=== PATIENT | female | born 1945 | race Caucasian/White ===

== ENCOUNTER 2020-11-26 13:27 | Emergency (ER) | payer MEDICARE, OTHER, SELFPAY ==
[2020-11-26 13:38] VITALS: BP 141/75; PULSE 75; RESP 16; TEMP 37.1; O2SAT 98
--- NOTE | 2020-11-26 14:07 | ED.FEMALEGU ---
HPI - Female Genitourinary General Chief complaint: Urogenital-Female Stated complaint: uti Time Seen by Provider: 11/26/20 13:41 Source: patient and RN notes reviewed Mode of arrival: ambulatory Limitations: no limitations History of Present Illness HPI Narrative: Patient presents today with 1 month history of urinary frequency and urgency at night with some lower abdominal pressure. Denies hematuria, dysuria, flank pain, back pain. Denies history of kidney stones or pyelonephritis. She has tried no nxiq-qyq-qcwrzox treatment prior to arrival. States she does drink plenty of water. MD elicited complaint: UTI Related Data Allergies Allergy/AdvReac Type Severity Reaction Status Date / Time codeine Allergy Unknown Nausea Verified 11/26/20 13:30 Penicillins Allergy Unknown Anaphylaxis Verified 11/26/20 14:09 Review of Systems Review of Systems: Narrative: CONSTITUTIONAL: Denies body aches, fever, chills, or sweats. EYES: Denies visual changes, redness, or discharge. ENT: Denies rhinorrhea, congestion, sore throat, or otalgia. CARDIOVASCULAR: Denies chest pain, palpitations, or edema. RESPIRATORY: Denies cough or dyspnea. GASTROINTESTINAL: Denies abdominal pain, nausea, vomiting, or diarrhea. GENITOURINARY: Denies dysuria or hematuria.+ Frequency, urgency SKIN: Denies rash, itching, or wounds. MUSCULOSKELETAL: Denies back pain, joint pain, or myalgia. NEUROLOGIC: Denies headache, numbness, tingling, or weakness. PSYCH: Denies depression or anxiety. PMFSH Social History Social History Smoking status: Never smoker Alcohol intake: current Comments At time of signature, I have reviewed and agree with nursing past medical, surgical, social and family history unless otherwise noted. Please see nursing chart for further information. There is no relevant family history pertinent to the presenting complaint Exam Narrative: Exam Narrative: GENERAL: Well-appearing, well-nourished, and in no acute distress. HEAD: Normocephalic, atraumatic. EYES: EOMI. No redness or drainage. Conjunctivae normal. ENT: Mucous membranes pink and moist. NECK: Normal AROM. Supple. No lymphadenopathy. CHEST: No respiratory distress. Clear to auscultation. HEART: Regular rate and rhythm. No murmur appreciated. Normal peripheral pulses. ABDOMEN: Soft, nontender, nondistended, normal active bowel sounds.-CVAT MUSCULOSKELETAL: No bony tenderness. EXTREMITIES: Normal range of motion. No edema. SKIN: Warm, dry, no rash. Capillary refill normal. Normal skin turgor. NEURO: No focal deficits. Alert and oriented x3. Gait steady. PSYCH: Normal affect. No signs of depression or anxiety. Course Vital Signs Vital signs: Vital Signs Temperature 98.8 F 11/26/20 13:38 Pulse Rate 75 11/26/20 13:38 Respiratory Rate 16 11/26/20 13:38 Blood Pressure 141/75 H 11/26/20 13:38 Pulse Oximetry 98 11/26/20 13:38 Temperature 98.8 F 11/26/20 13:38 Pulse Rate 75 11/26/20 13:38 Respiratory Rate 16 11/26/20 13:38 Blood Pressure 141/75 H 11/26/20 13:38 Pulse Oximetry 98 11/26/20 13:38 Reviewed. Pt has been instructed to follow up with her PCP regarding her elevated blood pressure today. MDM - Female Genitourinary Differential Diagnosis Differential diagnosis: Likely urinary tract infection, vaginitis, cystitis and other (Pyelonephritis, interstitial cystitis) Lab Data Attestation: I reviewed the patient's lab results. Labs: Urine Glucose Negative Reference Range: Negative Urine Bilirubin Negative Reference Range: Negative Urine Ketone Negative Reference Range: Negative Urine Specific Holly 1.025 Reference Range:1.001-1.035 Urine Blood
[2020-11-26 14:10] VITALS: BP 141/75; PULSE 75; RESP 16; TEMP 37.1; O2SAT 98
== END 2020-11-26 14:19 | disposition home or self-care (01) ==
PROVIDERS: Emergency Provider Nurse Practitioner
DX: N30.01 Acute cystitis with hematuria (principal)
CPT/HCPCS: 81003; 87086; 99213; G0463

== ENCOUNTER 2021-02-19 15:43 | Emergency (ER) | payer MEDICARE, SELFPAY ==
--- NOTE | 2021-02-19 15:53 | ED.FEMALEGU ---
HPI - Female Genitourinary General Chief complaint: Urogenital-Female Stated complaint: uti Time Seen by Provider: 02/19/21 15:58 Source: patient Mode of arrival: ambulatory Limitations: no limitations History of Present Illness HPI Narrative: Ashanti Angel is a 75 yo female with no PMH of urinary frequency, hesitation, that have been going on for 4 weeks. She was seen here on November 26 for similar symptoms and at that time had 2+ blood in her urine. She was seen by her primary care physician between that visit and today, where she was also found to have blood in her urine. Discussed with the patient arrange possibilities for having consistent blood in her urine at her age that could be as minor as small renal calculi it is major is having something like bladder cancer and that she needs to follow-up after discharge today on the hematuria Related Data Home Medications Medication Instructions Recorded Confirmed Tumeric 02/19/21 vitamin V36-nvbih acid 02/19/21 Allergies Allergy/AdvReac Type Severity Reaction Status Date / Time Penicillins Allergy Unknown Anaphylaxis Verified 02/19/21 16:04 codeine AdvReac Unknown Nausea Verified 02/19/21 16:04 Review of Systems Review of Systems: CONSTITUTIONAL: Denies fever, chills, sweats. EYES: Denies visual changes, redness, discharge. ENT: Denies rhinorrhea, congestion, sore throat, otalgia. CARDIOVASCULAR: Denies chest pain, palpitations, edema. RESPIRATORY: Denies dyspnea, wheezing, cough GASTROINTESTINAL: Denies abdominal pain, nausea, vomiting, diarrhea. GENITOURINARY: Has dysuria, has hematuria, abnormal discharge SKIN: Denies rash or itching. NEUROLOGIC: Denies numbness, or focal weakness. PSYCHIATRIC: Denies anxiety or depression. COUNTS INCLUDE 234 BEDS AT THE [facility] Past Medical History Medical History (Updated 02/19/21 @ 16:15 by Jessica Álvarez CNP) No acute medical problems Surgical History Surgical History (Updated 02/19/21 @ 16:12 by Jessica Álvarez CNP) History of cholecystectomy Family History Family History Father , at the age of 58 Heart disease Other Hypertension Social History Social History Smoking status: Never smoker Alcohol intake: current Gender identity (if verbalized by the patient): Female Comments At time of signature, I agree with nursing past medical, surgical, social and family history. There is no relevant family history pertinent to the presenting complaint. Exam Narrative: GENERAL: This is a well-nourished, well-developed patient, in mild distress. HEAD: normocephalic, atraumatic. EYES: Sclera clear/white. Vision is grossly intact. EARS: External ears normal,. Hearing grossly intact. NOSE: External nose normal without nasal discharge, nares without redness, no rhinorrhea. THROAT: Mucous membranes moist, NECK: Neck supple, non-tender CARDIOVASCULAR: Regular rate and rhythm without murmurs, gallops, or rubs. RESPIRATORY: Clear to auscultation. Breath sounds equal bilaterally. No wheezes, rales, or rhonchi. GASTROINTESTINAL: Abdomen soft, non-tender, SKIN: warm, intact with no suspicious lesions or rash, good texture and turgor. NEURO: awake, alert, and oriented to person, place and time. There were no obvious focal neurologic abnormalities. Steady gait EXTREMITIES: Normal range of motion. BACK: Nontender without deformity Course Course Emergency Course: Patient came here for dysuria and frequency that has been going on for 4 weeks she was also seen here 2 months ago for similar urinary symptoms and at that time also had blood in her urine UA shows 2+ blood and trace leukocytes Prior treatment with macrobid was not effective according to patient Started on Cipro 500 mg one twice daily x5 days-informed patient that she may hear from staff if antibiotic does not cover the bacteria that is in her urine Also gipage
[2021-02-19 15:56] VITALS: BP 160/70; PULSE 74; RESP 18; TEMP 37.6; O2SAT 98
[2021-02-19 16:04] VITALS: BP 160/70; PULSE 74; RESP 18; TEMP 37.6; O2SAT 98
== END 2021-02-19 16:20 | disposition home or self-care (01) ==
PROVIDERS: Emergency Provider Nurse Practitioner
DX: R30.0 Dysuria (principal)
CPT/HCPCS: 81003; 87077; 87086; 87186; 99213; G0463

== ENCOUNTER 2021-04-07 13:20 | Outpatient (CLI) | payer MEDICARE, SELFPAY ==
--- NOTE | ~2021-04-07 | XR_ITS ---
EXAMINATION: XR abdomen/kub 1V INDICATION: Microscopic hematuria TECHNIQUE: Supine views of the abdomen were obtained on 2 radiographs. COMPARISON: CT from today FINDINGS: No urolithiasis is identified. There are phleboliths of the left pelvis. A moderate volume of colonic stool is present. Cholecystectomy clips are noted. There is severe lumbar spondylosis. IMPRESSION: 1. No urolithiasis identified. Reviewed, dictated and finalized at location F.
--- NOTE | ~2021-04-07 | CT_ITS ---
EXAMINATION: CT abdomen pelvis wo/w con DATE: 04/07/2021 15:03 INDICATION: Microscopic hematuria TECHNIQUE: Computed tomography (CT) of the abdomen and pelvis was performed without and subsequently with 130 cc Omnipaque 350 intravenous contrast. Automated exposure control and iterative reconstructi on technique were employed. Exam dose: 1153.80 mGy-cm total exam DLP. COMPARISON: 06/05/2017 CT abdomen pelvis 04/07/2021 KUB FINDINGS: The lung bases are clear of infiltrate or consolidation. Heart size is within normal range. There is coronary artery calcification. No pericardial or pleural effusion. Small sliding hiatal hernia. Status post cholecystectomy. 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 Occasiona l small renal cysts. Diminished size of 8 mm exophytic lesion with attenuation of 46 Hounsfield units at the posterolatera l mid to lower right kidney since 06/05/2017, consistent with benign exophytic probable cyst. 6 mm posterior upper pole exophytic density with attenuation of 70 Hounsfield units, diminished in si ze since 06/05/2017, consistent with benign process. 2 cm exophytic posterior lateral mid to lower stable left renal lesion with attenuation of 27 Hounsfi eld units, consistent with exophytic cyst. There is an approximately 9.3 x 14 mm hypoenhancing mass of the anterolateral aspect of the lower randa e of the left kidney; this is stable since 06/05/2017, suggesting benign process or at worst a relati vely indolent hypernephroma. There is no similar change of the kidneys compared to 06/05/2017. No urinary tract calculus or hydroureteronephrosis. There is atherosclerotic calcification of the abdominal aorta; no abdominal aortic aneurysm. No intraperitoneal or retroperitoneal or pelvic mass lesion or adenopathy or ascites. The uterus and adnexal areas and urinary bladder are unremarkable. Normal appendix. There is a prominent amount of fecal material in the rectum and colon. Minimal colon ic diverticulosis; no CT evidence of diverticulitis. No bowel obstruction, bowel wall thickening, pne umatosis or intraperitoneal free air. Small fat-containing umbilical hernia. Diffuse osteopenia. There is chronic moderate burst fracture deformity of L1. Moderate degenerative disc disease at L2-3 and severe degenerative disc disease at L3-4, L4-5 and L5- S1. Prominent degenerative change at the apophyseal joints of the lumbar and lumbosacral spine. Nonspecific osteosclerotic area at left S3 area. IMPRESSION: Bilateral renal lesions are stable or diminished in size since 06/05/2017; no suspicious mass lesion is detected. No urinary tract calculus or hydroureteronephrosis is evident. New fracture deformity of L1 since 06/05/2017 Reviewed, dictated and finalized at Location A. Reviewed, dictated and finalized at location A. IMPRESSION: Bilateral renal lesions are stable or diminished in size since ; no suspicious mass lesion is detected. No urinary tract calculus or hy droureteronephrosis is evident. New fracture deformity of L1 since 06/05/2017
[2021-04-07 14:34] LABS: Estimated Glomerular Filt Rate > 60
== END 2021-04-07 13:21 | disposition home or self-care (01) ==
PROVIDERS: Visit Provider Urology
DX: R31.29 Other microscopic hematuria (principal); N28.89 Other specified disorders of kidney and ureter
CPT/HCPCS: 74018; 74178; Q9967

== ENCOUNTER 2021-06-04 10:26 | Emergency (ER) | payer MEDICARE, SELFPAY ==
[2021-06-04 10:37] VITALS: BP 138/66; PULSE 62; RESP 16; TEMP 36.7; O2SAT 98
--- NOTE | 2021-06-04 10:58 | ED.GENADULT ---
HPI - General Adult General Chief complaint: Upper Respiratory Infection Stated complaint: sinus issues/mucus Time Seen by Provider: 06/04/21 10:27 Source: patient Mode of arrival: ambulatory Limitations: no limitations History of Present Illness HPI narrative: 75 y/o female. PMHx Vitamin B12 deficiency. Presents to [facility] today with acute complaints of increased sinus congestion, nasal discharge, and maxillary facial pressure for the past 5 days. Pt reports to get sinus infections every year around this time , and notes her manifestations are the same as always . She has had recent OP Covid 19 testing, that was negative. No fever, chills, myalgias. No chest congestion, chest pain, dyspnea. She tells me that she was unable to see her PCP because he is located out of [facility], and the he has recently retired. She is currently without an active PCP. She reports subtherapeutic relief with OTC remedies. Client is without additional acute c/o illness upon PE. Related Data Home Medications Medication Instructions Recorded Confirmed Tumeric 02/19/21 vitamin A98-[id number] acid 02/19/21 Allergies Allergy/AdvReac Type Severity Reaction Status Date / Time Penicillins Allergy Unknown Anaphylaxis Verified 02/19/21 16:04 codeine AdvReac Unknown Nausea Verified 02/19/21 16:04 Review of Systems Review of Systems: CONSTITUTIONAL: Denies fever, chills, sweats. EYES: Denies visual changes, redness, discharge. ENT: Positive rhinorrhea, congestion. No sore throat, otalgia. CARDIOVASCULAR: Denies chest pain, palpitations, edema. RESPIRATORY: Denies dyspnea, wheezing, cough GASTROINTESTINAL: Denies abdominal pain, nausea, vomiting, diarrhea. GENITOURINARY: Denies dysuria, hematuria, abnormal discharge SKIN: Denies rash or itching. MUSCULOSKELETAL: Denies acute back pain, joint pain, or myalgia. NEUROLOGIC: Denies numbness, or focal weakness. PSYCHIATRIC: Denies anxiety or depression. All systems reviewed & are unremarkable except as noted in HPI and below PMFSH Past Medical History Medical History No acute medical problems Surgical History Surgical History History of cholecystectomy Family History Family History Father , at the age of 58 Heart disease Other Hypertension Social History Social History Smoking status: Never smoker Alcohol intake: current Gender identity (if verbalized by the patient): Female Exam Narrative: GENERAL: This is a well-nourished, well-developed adult, in no apparent distress. HEAD: normocephalic, atraumatic. EYES: PERRL. Sclera clear/white. EARS: External ears normal, auditory canals clear and without drainage, TMs normal. NOSE: External nose normal. Positive Rhinorrhea and purulent bilateral nare nasal congestion. No obstruction. THROAT: Mucous membranes moist, posterior pharynx clear. No exudates. NECK: Neck supple, non-tender without lymphadenopathy, masses or thyromegaly. CARDIOVASCULAR: Regular rate and rhythm without murmurs, gallops, or rubs. RESPIRATORY: Clear to auscultation. Breath sounds equal bilaterally. No wheezes, rales, or rhonchi. GASTROINTESTINAL: Abdomen soft, non-tender, nondistended. Bowel sounds are active. No guarding. SKIN: warm, intact with no suspicious lesions or rash, good texture and turgor. NEURO: Alert, active, and age appropriate. No focal neurologic deficits. EXTREMITIES: Negative. Course Vital Signs Vital signs: Vital Signs Temperature 36.7 C 06/04/21 10:37 Pulse Rate 62 06/04/21 10:37 Respiratory Rate 16 06/04/21 10:37 Blood Pressure 138/66 06/04/21 10:37 Pulse Oximetry 98 06/04/21 10:37 Temperature 36.7 C 06/04/21 10:37 Pulse Rate 62
== END 2021-06-04 11:14 | disposition home or self-care (01) ==
PROVIDERS: Emergency Provider Nurse Practitioner Adult Health
DX: J06.9 Acute upper respiratory infection, unspecified (principal); J01.00 Acute maxillary sinusitis, unspecified; E53.8 Deficiency of other specified B group vitamins
CPT/HCPCS: 99213; G0463

== ENCOUNTER → 2022-04-04 14:43 | Outpatient (CLI) | payer MEDICARE, SELFPAY ==
--- NOTE | ~2022-04-04 | MR_ITS ---
EXAMINATION: MR brain/brain stem wo con DATE: 04/04/2022 15:21 INDICATION: Cognitive communication deficit. TECHNIQUE: Magnetic resonance imaging (MRI) of the brain and brainstem was performed without intraven ous contrast. COMPARISON: None. FINDINGS: There is diffuse brain volume loss. There are scattered areas of nonspecific increased T2-w eighted signal intensity in the cerebral white matter, which is within normal limits for the patient' s age. There is no intracranial hemorrhage, acute infarction, or abnormal intracranial mass lesion. T he ventricles are normal in size. There is mild mucosal thickening in the paranasal sinuses. There ar e likely changes of ocular lens replacement surgeries. There is a trace left mastoid effusion. IMPRESSION: 1. Normal aging brain. Reviewed, dictated and finalized at location A. IMPRESSION: 1. Normal aging brain.
== END ==
PROVIDERS: PCP Family Medicine; Visit Provider Family Medicine
DX: R41.841 Cognitive communication deficit (principal); Z87.820 Personal history of traumatic brain injury
CPT/HCPCS: 70551

== ENCOUNTER 2024-12-15 10:11 | Emergency (ER) | payer MEDICARE, SELFPAY ==
--- NOTE | ~2024-12-15 | CT_ITS ---
History: Ground-level fall PROCEDURE: CT head without contrast. COMPARISON: None. Reference is made to an MRI examination of the brain dated 04/04/2022 yielding benig n results TECHNIQUE: Axial imaging of the head performed from the skull base to the vertex without IV contrast. Sagittal a nd coronal reformations obtained. DLP: 605 mGy-cm FINDINGS: The ventricles are enlarged. The dilatation of the ventricles is proportional to the degree of sulcal prominence, not uncommon in the senescent brain. Decreased attenuation is identified within the periventricular white matter, likely secondary to micr ovascular ischemic disease, in a patient of this age. There is no mass, mass effect or midline shift. There is no abnormal extra-axial fluid collection or intracranial hemorrhage. Visualized paranasal sinuses are clear. The mastoid air cells are well aerated. No acute displaced fractures within the overlying cranium. Impression: No acute intracranial hemorrhage or suspicious mass effect. Reviewed, dictated and finalized at location A. Impression: No acute intracranial hemorrhage or suspicious mass effect.
--- NOTE | ~2024-12-15 | CT_ITS ---
History: Ground-level fall PROCEDURE: CT cervical spine without intravenous contrast. COMPARISON: None TECHNIQUE: Multiple contiguous axial images of the cervical spine were performed without the administration of i ntravenous contrast. DLP: 425 mGy-cm FINDINGS: Straightening and slight reversal of the normal curvature of the cervical spine is identified, likely muscular in origin. No acute fractures are present. Biapical scarring. No soft tissue abnormality is present. The airway is patent. Impression: Straightening and slight reversal of the normal curvature of the cervical spine, likely muscular in o rigin. No acute fracture. Reviewed, dictated and finalized at location A. Impression: Straightening and slight reversal of the normal curvature of the cervical spine , likely muscular in origin. No acute fracture.
[2024-12-15 10:11] VITALS: BP 118/55; PULSE 70; RESP 18; TEMP 36.4; O2SAT 100
--- NOTE | 2024-12-15 10:20 | ED_ITS ---
HPI - General Adult General Chief complaint: Fall Stated complaint: fall Time Seen by Provider: 12/15/24 10:13 History of Present Illness HPI narrative: 79-year-old female present to the emergency department for evaluation for having a fall in the shower. Patient presents to the ED from a local [facility] care unit. Patient had a fall but had no loss consciousness. Patient is at her normal baseline. Patient did not respond yes to having any pain or discomfort patient has no external signs of injury. Related Data Home Medications ?Medication ?Instructions ?Recorded ?Confirmed ?Last Taken ?Type Tumeric 02/19/21 Unknown History vitamin Q54-wpktp acid 02/19/21 Unknown History Allergies Allergy/AdvReac Type Severity Reaction Status Date / Time Penicillins Allergy Unknown Anaphylaxis Verified 02/19/21 16:04 codeine AdvReac Unknown Nausea Verified 02/19/21 16:04 Review of Systems Review of Systems: All systems reviewed & are unremarkable except as noted in HPI and below PMFSH Past Medical History Medical History No acute medical problems Surgical History Surgical History History of cholecystectomy Family History Family History Father , at the age of 58 Heart disease Other Hypertension Social History Social History Smoking status: Never smoker Alcohol intake: current Gender identity (if verbalized by the patient): Female Exam Narrative: APPEARANCE: Well appearing, no pain, no distress, well-nourished. HEAD: normocephalic, atraumatic. EYES: PERRLA/EOMI, conjunctivae clear. NOSE: Normal no drainage EARS:TMS clear with good light reflex. THROAT: Pharynx clear, no exudate. NECK: Supple. No adenopathy, no masses. RESPIRATORY: Airway patent, respirations nonlabored. Clear to auscultation bilaterally, no rales, rhonchi, wheezing. CARDIOVASCULAR: Regular rate and rhythm without murmurs rubs or gallops. ABDOMINAL: Soft, nontender, nondistended, normal bowel sounds MUSCULOSKELETAL: Moves all extremities. Strength/ROM intact, No edema, No calf tenderness. NEURO: Alert, minimally verbal at baseline. Cranial nerves II through XII intact. Grossly intact SKIN: Warm, dry. Normal Color Course Vital Signs Vital signs: Vital Signs Temperature 97.5 F L 12/15/24 10:11 Pulse Rate 70 12/15/24 10:11 Respiratory Rate 18 12/15/24 10:11 Blood Pressure 118/55 L 12/15/24 10:11 Pulse Oximetry 100 12/15/24 10:11 Oxygen Delivery Room Air 12/15/24 10:11 Temperature 97.5 F L 12/15/24 10:11 Pulse Rate 66 12/15/24 11:35 Respiratory Rate 12 12/15/24 11:35 Blood Pressure 119/57 L 12/15/24 11:35 Pulse Oximetry 96 12/15/24 11:35 Oxygen Delivery Room Air 12/15/24 10:11 Medical Decision Making MDM Narrative Medical decision making narrative: 79-year-old female presents to the emergency department for evaluation after having a ground level fall. Patient denies any pain or injury. Patient has no external signs of injury. Patient had negative CT head and CT C-spine were negative. Patient will be discharged back to her care facility pain Differential Diagnosis Differential Diagnosis: Subdural hematoma, subarachnoid hemorrhage, cervical spine fracture Vital Signs Vital Signs: Vital Signs Temperature 97.5 F L 12/15/24 10:11 Pulse Rate 70 12/15/24 10:11 Respiratory Rate 18 12/15/24 10:11 Blood Pressure 118/55 L 12/15/24 10:11 Pulse Oximetry 100 12/15/24 10:11 Oxygen Delivery Room Air 12/15/24 10:11 Temperature 97.5 F L 12/15/24 10:11 Pulse Rate 66 12/15/24 11:35 Respiratory Rate 12 12/15/24 11:35 Blood Pressure 119/57 L 12/15/24 11:35 Pulse Oximetry 96 12/15/24 11:35 Oxygen Delivery Room Air 12/15/24 10:11 Imaging Data Radiologist's impression: Impressions Head CT 12/15/24 10:53 Impression: No acute intracranial hemorrhage or suspicious mass effect. Cervical Spine CT 12/15/24 10:55 Impression: Straightening and slight reversal of the normal curvature of the cervical spine, likely muscular in origin. No acute fracture. Discharge Plan Discharge Clinical Impression: Head injury Patient Disposition: Home Condition: Stable Instructions: Antibiotic Form, Head Injury (ED) Additional Instructions: Head and neck CT were negative. Have close follow-up with your primary care physician. Patient Language: Sammarinese Prescriptions: No Action amoxicillin 500 mg capsule 500 mg PO Q8H 10 Days Qty: 30 0RF Tumeric vitamin L53-joxxk acid Follow-up/Referrals: Nanci,Keegan Ramírez MD [Primary Care Provider] -
--- OUTSIDE RECORDS SUMMARY | 2024-12-15 10:21 | XMS_ITS | Encounter Summary ---
Author Organization [facility] Health Address [address] [place] [address] Care Team Providers Care Silver Cleaner Name Role Phone Jolie Interiano DPM Primary Care Provider [phone] Artemio Reveles DO Primary Care Provider [phone] Eugenio Jennings MD Primary Care Provider [phone] Eugenio Jennings MD Unavailable Caroline Vincent MD Unavailable [phone] Lamar Ward RN Unavailable [phone] Shi Conrad RN Unavailable [phone] Shi Conrad RN Unavailable [phone] Encounter Details Date Type Department Care Team (Late st Contact Info) Description 06/15/2010 [facility] Unknown, Provider Social History Tobacco Use Types Packs/Day Years Used Date Smoking Tobacco: Never Alcohol Use Standard Drinks/Week Comments Yes 0 (1 standard drink = 0.6 oz pur e alcohol) occasionally Comments No Sex and Gender Information Value Date Recorded Sex Assigned at Not on file 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 Gender Identity Not on file Sexual Orientation Not on file documented as of this encounter Plan of Treatment Not on file documented as of this encounter Visit Diagnoses Not on filedocumented in this encounter Care Teams Silver Cleaner Relationship Specialty Start Date End Date Jolie InterianoRUTHIE [id number] [place] [address] PCP - General 04/14/10 10/09/10 [place] [address] [place] [id number] PCP - General Family Medicine 10/10/10 07/30/11 [place] [address] [place] [address] PCP - General Family Medicine 07/31/11 Eugenio Jennings MD [address] [facility] [address] [place] [address] PCP - Attributed-MSSP 09/20/18 10/08/20 Caroline Vincent MD [address] [id number] Ophthalmology 09/27/18 Lamar Ward RN Post Acute Accounts Payable CoordinatorLard Bleacher 01/18/22 Shi Conrad RN Post Acute Accounts Payable CoordinatorLard Bleacher 02/06/22 Shi Conrad RN Post Acute Accounts Payable CoordinatorLard Bleacher 02/06/22 documented as of this encounter
--- OUTSIDE RECORDS SUMMARY | 2024-12-15 10:21 | XMS_ITS | Encounter Summary ---
Author Organization [facility] Health Address [address] [place] [address] Care Team Providers Care Talent Acquisition Program Manager Name Role Phone Eugenio Jennings MD Primary Care Provider [phone] Eugenio Jennings MD Unavailable Caroline Vincent MD Unavailable [phone] Lamar Ward RN Unavailable [phone] Shi Conrad RN Unavailable [phone] Shi Conrad RN Unavailable [phone] Encounter Details Date Type Department Care Team (Late st Contact Info) Description 03/13/2013 [facility] Social History Tobacco Use Types Packs/Day Years Used Date Smoking Tobacco: Never Smokeless Tobacco: Never Alcohol Use Standard Drinks/Week Comments Yes 0 (1 standard drink = 0.6 oz pur e alcohol) occasionally Comments No Sex and Gender Information Value Date Recorded Sex Assigned at Not on file 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 Gender Identity Not on file Sexual Orientation Not on file documented as of this encounter Plan of Treatment Not on file documented as of this encounter Visit Diagnoses Not on filedocumented in this encounter Care Teams Talent Acquisition Program Manager Relationship Specialty Start Date End Date Eugenio Jennings MD PCP - General Family Medicine 07/31/11 Eugenio Jennings MD [address] [facility] [address] [place] [address] PCP - Attributed-MSSP 09/20/18 10/08/20 Caroline Vincent MD [address] [phone] Ophthalmology 09/27/18 Lamar Ward RN Post Acute Duralumin MechanicFiscal Economist 01/18/22 Shi Conrad RN Post Acute Duralumin MechanicFiscal Economist 02/06/22 Shi Conrda RN Post Acute Duralumin MechanicFiscal Economist 02/06/22 documented as of this encounter
--- OUTSIDE RECORDS SUMMARY | 2024-12-15 10:21 | XMS_ITS | Encounter Summary ---
Author Organization [facility] Address [address] [place] [address] Care Team Providers Care Instrument Lens Inspector Name Role Phone Eugenio Jennings MD Primary Care Provider [phone] Eugenio Jennings MD Unavailable Caroline Vincent MD Unavailable [phone] Lamar Ward RN Unavailable [phone] Shi Conrad RN Unavailable [phone] Shi Conrad RN Unavailable [phone] Encounter Details Date Type Department Care Team (Late st Contact Info) Description 04/29/2013 [facility] Social History Tobacco Use Types Packs/Day Years Used Date Smoking Tobacco: Never Smokeless Tobacco: Never Alcohol Use Standard Drinks/Week Comments Yes 0 (1 standard drink = 0.6 oz pur e alcohol) occasionally Comments No Sex and Gender Information Value Date Recorded Sex Assigned at Not on file Legal Sex Female 4:22 AM WHEELCHAIR RENTAL CLERK Gender Identity Not on file Sexual Orientation Not on file documented as of this encounter Plan of Treatment Not on file documented as of this encounter Visit Diagnoses Not on filedocumented in this encounter Care Teams Instrument Lens Inspector Relationship Specialty Start Date End Date Eugenio Jennings MD PCP - General Family Medicine 07/31/11 Eugenio Jennings MD [address] [facility] [address] [place] [address] PCP - Attributed-MSSP 09/20/18 10/08/20 Caroline Vincent MD [address] [id number] Ophthalmology 09/27/18 Lamar Ward RN Post Acute Senior Naval ParachutistEarly Childhood Special Educator 01/18/22 Shi Conrad RN Post Acute Senior Naval ParachutistEarly Childhood Special Educator 02/06/22 Shi Conrad RN Post Acute Senior Naval ParachutistEarly Childhood Special Educator 02/06/22 documented as of this encounter
--- OUTSIDE RECORDS SUMMARY | 2024-12-15 10:21 | XMS_ITS | Encounter Summary ---
Author Organization [facility] Address [address] [place] [address] Care Team Providers Care Hearing Healthcare Practitioner Name Role Phone Jolie Interiano DPM Primary Care Provider [phone] Artemio Reveles DO Primary Care Provider [phone] Eugenio Jennings MD Primary Care Provider [phone] Eugenio Jennings MD Unavailable Caroline Vincent MD Unavailable Lamar Ward RN Unavailable [phone] Shi Conrad RN Unavailable [phone] Shi Conrad RN Unavailable [phone] Encounter Details Date Type Department Care Team (Late st Contact Info) Description 05/23/2010 [facility] Unknown, Provider Social History Tobacco Use Types Packs/Day Years Used Date Smoking Tobacco: Never Alcohol Use Standard Drinks/Week Comments Yes 0 (1 standard drink = 0.6 oz pur e alcohol) occasionally Comments No Sex and Gender Information Value Date Recorded Sex Assigned at Not on file Legal Sex Female 4:22 AM PRODUCTION PLANNER Gender Identity Not on file Sexual Orientation Not on file documented as of this encounter Plan of Treatment Not on file documented as of this encounter Visit Diagnoses Not on filedocumented in this encounter Care Teams Hearing Healthcare Practitioner Relationship Specialty Start Date End Date Jolie InterianoRUTHIE [address] [place] [address] PCP - General 04/14/10 10/09/10 [place] [address] [place] [phone] PCP - General Family Medicine 10/10/10 07/30/11 [place] [address] [place] [address] PCP - General Family Medicine 07/31/11 Eugenio Jennings MD [address] [address] [place] [address] PCP - Attributed-MSSP 09/20/18 10/08/20 Caroline Vincent MD [address] [phone] Ophthalmology 09/27/18 Lamar Ward RN Post Acute Hull MolderSpecification Manager 01/18/22 Shi Conrad RN Post Acute Hull MolderSpecification Manager 02/06/22 Shi Conrad RN Post Acute Hull MolderSpecification Manager 02/06/22 documented as of this encounter
--- OUTSIDE RECORDS SUMMARY | 2024-12-15 10:21 | XMS_ITS | Clinical Summary ---
Author Organization [facility] Address [address] [place] [address] Care Team Providers Care Nanotechnology Engineering Technician Name Role Phone Unavailable Primary Care Provider Unavailabl e Allergies Active Allergy Reactions Criticality Noted Date Comments Codeine 09/21/2008 Other 08/20/2009 Opiod analgesics Penicillins 09/21/2008 Quinolones 08/20/2009 Sulfa Antibiotics 09/21/2008 Medications melatonin 5 MG tablet Take 5 mg by mouth nightly. Active cyanocobalamin (VITAMIN B-12) 100 MCG tablet Take 100 mcg by mouth in the morning. Active calcium carb-cholecalci ferol 600-200 MG-UNIT tablet tablet Take 1 tablet by mouth in the morning. Active COENZYME Q10 PO Acti ve Prospect-3 Fatty Acids (FISH OIL PO) Active fluticasone (FLONASE) 50 MCG/ACT nasal solution Administer 2 sprays into each nostril in the morning. Active FOLIC ACID PO Active Ascorbic Acid (VITAMIN C PO) Activ e acetaminophen (TYLENOL) 325 MG tablet Take 2 tablets (650 mg total) by mouth every 6 (six) hours as needed for mild pain or moderate pain. 0 2 Active cholecalciferol (VITAMIN D3) 25 MCG (1000 UT) tablet Take 1 tablet (1,000 Units total) by mouth daily. 0 2 Active famotidine (PEPCID) 20 MG tablet Take 1 tablet (20 mg total) by mouth 2 (two) times a day. 0 2 Active gabapentin (NEURONTIN) 100 MG capsule Take 2 capsules (200 mg total) by mouth every 8 (eight) hours. 0 2 Active mirtazapine (REMERON) 15 MG tablet Take 1 tablet (15 mg total) by mouth nightly. 0 2 Active polyethylene glycol (MIRALAX) 17 g packet Take 17 g by mouth 2 (two) times a day. 10 each 2 Active vitamin B-6 (B-6) 50 MG tablet Take 1 tablet (50 mg total) by mouth daily. 0 2 Active Active Problems Problem Noted Date Diagnosed Date Multiple injuries 01/17/2022 Multiple pelvic fractures 01/17/2022 Dementia, mild 01/17/2022 Overview (2023): October SNOMED Diagnostic import Retention of urine 01/17/2022 Gastroesophageal reflux disease 01/17/2022 Multiple closed pelvic fractures 01/17/2022 Immunizations Immunization Administration Dates Next Due Influenza, Quadrivalent 07/09/2021,05/07/2020 Moderna SARS-CoV-2 Vaccination 09/13/2020,2020 Family History Medical History Relation Name Comments Hypertension Brother Heart disease Father Heart failure Father Cancer Maternal Grandmother Hypertension Mother Heart failure Paternal Grandfather Relation Name Status Comments Brother Father Maternal Grandmother Alive Mother Paternal Grandfather Alive Social History Tobacco Use Types Packs/Day Years Used Date Smoking Tobacco: Never Alcohol Use Standard Drinks/Week Comments Yes 0 (1 standard drink = 0.6 oz pur e alcohol) occas Comments Unknown Sex and Gender Information Value Date Recorded Sex Assigned at Not on file Legal Sex Female 5:14 PM EDT Gender Identity Not on file Sexual Orientation Not on file Last Filed Vital Signs Vital Sign Reading Time Taken Comments Blood Pressure 121/71 02/03/2022 8:00 PM CDT Pulse 82 02/03/2022 8:00 PM CDT Temperature 36.8 C (98.3 F) 02/03/2022 8:00 PM CDT Respiratory Rate 17 02/03/2022 8:00 PM CDT Oxygen Saturation 98% 02/03/2022 8:00 PM CDT Inhaled Oxygen Concentration - - Weight 88.5 kg (195 lb) 01/28/2022 11:41 PM CDT Height 165.1 cm (5' 5) 01/28/2022 11:41 PM CDT Body Mass Index 32.45 01/28/2022 11:41 PM CDT Plan of Treatment Health Maintenance Due Date Last Done Comments Annual Visit Topic 1946 Hepatitis C Screening 10/27/1963 DTaP/Tdap/Td Vaccines (1 - Tdap) 1964 Pneumococcal Vaccine: 65+ Ye ars (1 of 4 - PCV) 10/27/1995 HIB Vaccines Aged Out No longer eligi ble based on patient's age to complete this topic HPV Vaccines Aged Out No longer eligi ble based on patient's age to complete this topic Hepatitis A Vaccines Aged Out No long er eligible based on patient's age to complete this topic Hepatitis B Vaccines Aged Out No long er eligible based on patient's age to complete this topic IPV Vaccines Aged Out No longer eligi ble based on patient's age to complete this topic Meningococcal Vaccine Aged Out No jayro mary eligible based on patient's age to complete this topic Advance Directives * Full Resuscitation (Latest Code Status on File) Date Activated Date Inactivated Comments 01/17/2022 8:39 PM 02/04/2022 1:57 AM
--- OUTSIDE RECORDS SUMMARY | 2024-12-15 10:21 | XMS_ITS | Referral Summary ---
Author Organization [facility] Address [address] [place] [address] Care Team Providers Care Commercial Collections Specialist Name Role Phone Sang Kwong MD Primary Care Provider [phone] Keegan Christine MD Unavailable Weston Muniz MD Unavailable [phone] Encounters Date Type Department Care Team Description 09/17/2024 Orders Only [facility] Accountable Care Organization [address] [place] [address] Provider, MD Viktoriya from Last 3 Months Allergies Active Allergy Reactions Criticality Noted Date Comments Oxyquinoline Hives Medium 08/30/2022 Penicillins Edema Medium 09/21/2008 Quinolones Edema Medium 08/20/2009 Sulfa (Sulfonamide Antibiotics) Rash Medium 08/2008 Medications acetaminophen (TYLENOL) 325 mg tabletIndications:F ever,Pain Take 2 tablets (650 mg total) by mouth every 6 (six) hours as needed for pain 90 tablet 1 3 Active sertraline (ZOLOFT) 50 mg tabletIndications:A nxiety with Depression TAKE 1 TABLET (50 MG TOTAL) BY MOUTH DAILY 90 tablet 4 4 06/09/20 25 Active donepeziL (ARICEPT) 5 mg tabletIndications:M oderate to Severe Alzheimer's Type Dementia TAKE 1 TABLET (5 MG TOTAL) BY MOUTH NIGHTLY 90 tablet 3 5 08/11/19 26 Active ondansetron ODT (ZOFRAN-ODT) 4 mg disintegrating tablet Take 1 tablet (4 mg total) by mouth every 8 (eight) hours as needed for nausea or vomiting 20 tablet 5 Active aspirin 81 mg enteric coated tabletIndications:c erebral ischemia Take 1 tablet (81 mg total) by mouth daily 30 tablet 11 5 09/01/19 26 Active furosemide (LASIX) 20 mg tabletIndications:h ypertension Take 1 tablet (20 mg total) by mouth daily as needed (HTN / Edema) 30 tablet 5 Active Active Problems Problem Noted Date Diagnosed Date Altered mental status, unspe cified altered mental status type 08/28/2024 Acute cough 07/11/2024 Assessment & Plan (07/11/2024 12:28 PM LETTERPRESS PRINTING MACHINIST): No cough on exam, lungs are clear. Patient's brother reports infrequent throat clearing and cough. No changes in behavior/activity, normal appetite. No fevers. Patient denies feeling unwell or having any shortness of breath however technically difficult to get information from her with dementia status. Will check chest x- ray and repeat lab work. Pedal edema 06/10/2024 Assessment & Plan (07/11/2024 12:34 PM LETTERPRESS PRINTING MACHINIST): No significant swelling noted on exam, trace pitting edema to bilateral feet. Patient is taking furosemide 40 mg daily for the past 2 days, can continue to do so for the next 3 days. Weight is actually down 4 lbs in the past 1 month. Encouraged continued use of compression stockings as able, may need to get larger size if difficulty putting them on. Discussed following a lower sodium diet which is difficult for patient to do at assisted living facility, stressed the need to avoid snacking on higher sodium foods. Continue to drink plenty of fluids. Follow-up with any new or worsening symptoms. Assessment & Plan (06/10/2024 2:47 PM LETTERPRESS PRINTING MACHINIST): Discussed options including labs, chest x-ray, echo, increase diuretic. Well-appearing today. Lungs are clear. No distant heart sounds. Will increase furosemide to 40 mg daily for 5 days. Then return to 20 mg daily. If not improved or worsening let us know. She is agreeable to complete labs today. Red flags reviewed as well. Chronic pain of right knee 02/08/2024 Assessment & Plan (02/08/2024 1:56 PM CDT): Fall in July of this year, reviewed x-rays of right knee showing osteoarthritis. Mild intermittent pain reported by patient. Brother states that she typically has good response to topical pain relief options. Will try Tylenol Arthritis as well. Follow-up if no improvement or if experiencing any worsening symptoms. Laryngeal spasm 08/08/2023 UTI symptoms 11/14/2022 Assessment & Plan (11/14/2022 12:55 PM CDT): Some changes noted in urinary frequency that is baseline for patient. Will check urinalysis and culture to rule out infection. Encouraged patient to push fluids and decrease caffeine intake. Mild cognitive impairment 11/13/2022 Assessment & Plan (11/13/2022 3:45 PM CDT): Not currently driving. Encounter to establish care 11/13/2022 Assessment & Plan (11/14/2022 12:49 PM CDT): New patient; reviewed recommended preventive screenings and vaccinations. Reviewed medical, surgical and family history. Moderate dementia with anxiety 11/13/2022 Assessment & Plan (07/11/2024 12:29 PM LETTERPRESS PRINTING MACHINIST): No falls or safety concerns. No acute changes in mood or aggression. Assessment & Plan (06/10/2024 2:46 PM LETTERPRESS PRINTING MACHINIST): Worsening. She is in a safe place. Has supportive family. Assessment & Plan (02/08/2024 1:51 PM CDT): Residing at [facility] with brother. No safety concerns or agitation. Assessment & Plan (11/14/2022 12:45 PM CDT): SLUMS completed, see scanned media. Patient residing at [facility], no safety concerns. She is not driving. Discussed use of donepezil with patient and brother today. Reviewed medication side effects and scheduling. Will continue to monitor. Dementia 08/28/2022 Encounter for Medicare annual wellness exam 10/2022 Assessment & Plan (02/08/2024 1:54 PM CDT): Preventive exam; reviewed recommended preventive screenings and vaccinations. Encourage annual flu vaccine. Wear sunscreen/protective clothing when outdoors. -patient presents today with her brother. They state that she was treated for urinary tract infection about 1 month ago. She has not currently have any urinary symptoms. -declines screening mammogram, DEXA and C scope Assessment & Plan (07/29/2022 11:52 AM LETTERPRESS PRINTING MACHINIST): A(n) yearly Medicare Annual Wellness Visit has been performed today. Ashanti Angel is not up to date on screening tests. She is in need of DEXA and hepatitis c screening. She is not up to date on needed preventative vaccinations; She is in need of Covid-19 (booster). Driving is likely not safe at this point, without formal parcel post truck driver's test Recommended looking again into assisted living, it might be a safer arrangement Awaiting labs Generalized anxiety disorder 02/17/2022 Assessment & Plan (11/14/2022 12:53 PM CDT): No changes in medication management, continue citalopram. Denies any depressive symptoms. Will continue to monitor. Hypertension, essential 02/15/2022 Assessment & Plan (07/11/2024 12:28 PM LETTERPRESS PRINTING MACHINIST): Blood pressure is well controlled, no changes made today. Assessment & Plan (06/10/2024 2:45 PM LETTERPRESS PRINTING MACHINIST): Stable. Continue spironolactone. Short increased burst of furosemide. Will continue to monitor. Assessment & Plan (02/08/2024 1:55 PM CDT): Blood pressure is well controlled, continue present management with furosemide and spironolactone. Assessment & Plan (11/14/2022 12:53 PM CDT): Condition is stable Discussed/ordered labs, encouraged healthy, low carbohydrate lifestyle and at least 150min/week of exercise, continue on furosemide and spironolactone. Cognitive communication deficit 02/03/2022 Assessment & Plan (04/22/2022 12:42 PM CDT): Advised waiting another month or two before driving test; driving not recommended at this point, but as things improve that may be feasible Fracture of superior rim of right pubis, subsequent encounter for fracture with routine healing 02/03/2022 Other specified fracture of left pubis, subsequent encounter for fracture with routine healing 02/03/2022 Other abnormalities of gait and mobility 022 Unspecified symptoms and sig ns involving cognitive functions and awareness 02/03/2022 Multiple injuries 01/17/2022 Retention of urine 01/17/2022 Acute pain due to trauma 01/16/2022 On supplemental oxygen therapy 01/16/2022 Globus sensation 01/11/2022 Anemia 01/11/2022 Hypotension 01/11/2022 Atherosclerosis of aorta 11/13/2018 Overview (01/11/2022): 06/05/2017 CT Abdomen & Pelvis [facility] Mild Atherosclerosis of the aorta Assessment & Plan (02/08/2024 1:54 PM CDT): Continue secondary prevention. Dysphagia 02/01/2015 GERD (gastroesophageal reflux disease) 3 Spinal stenosis, lumbar josé miguel on, without neurogenic claudication 06/06/2012 Hyperlipidemia 04/08/2010 Assessment & Plan (11/14/2022 12:54 PM CDT): Unspecified, not currently taking any medication. Labs ordered today. Vitamin D deficiency 09/18/2008 Osteopenia 09/18/2008 OA (osteoarthritis) 09/18/2008 Resolved Problems Problem Noted Date Diagnosed Date Resolved Date Hospital discharge follow-up 02/24/2022 02/08/2024 Assessment & Plan (09/04/2022 1:51 PM LETTERPRESS PRINTING MACHINIST): I have reviewed the hospital record, medications, and relevant testing from Ashanti Angel's recent admission. Complications and discharge plan have been noted, reviewed. Post-discharge testing has not been ordered. Assessment & Plan (02/24/2022 4:44 PM CDT): I have reviewed the hospital record, medications, and relevant testing from Ashanti Angel's recent admission. Complications and discharge plan have been noted, reviewed. Post-discharge testing has been ordered. Home health ordered Referral to pain management ordered Due to continued leg swelling, will get echocardiogram Labs as ordered Mild dementia 01/17/2022 02/08/2024 Immunizations Immunization Administration Dates Next Due Flucelvax Influenza Quad 07/09/2021 Influenza LAIV (Nasal) 04/28/2022(Deferr ed: Patient Refused),04/22/2022(Deferred: Patient Refused),04/22/2022(Deferred: Patient Refused),07/09/2021,05/07/2020 Influenza, Quad, Adjuvantate d, Intramuscular 07/09/2021 Influenza, Quadrivalent, Hig h Dose, Preservative Free, Intrr 05/10/2023,07/26/2022 Influenza, Quadrivalent, Spl it, Preservative Free, Intramuscular 05/07/2020 Influenza, Trivalent, Adjuva nted, Intramuscular 05/09/2024 Influenza, Unspecified 05/07/2023,05/09/2021 Moderna SARS-CoV-2 Monovalen t Vaccination (12+ YRS) 09/13/2020,08/12/2020 Moderna Sars-cov-2 Bivalent Vaccine 50 Mcg/0.5 mL (12+ YRS)-Blue/Benedict 07/09/2021,09/03/2020,08/12/2020 Pneumococcal Conjugate Pcv20 07/26/2022 Pneumococcal, Unspecified 07/26/2022 Social History Tobacco Use Types Packs/Day Years Used Date Smoking Tobacco: Never Smokeless Tobacco: Never Tobacco Cessation:Counseling Given: Not Answered OASIS D0700: Social Isolation Answer Da te Recorded Frequency of experiencing loneliness or isolatio n Never 08/14/2024 OASIS A1250: Transportation Answer Date Recorded Lack of Transportation (Medical) No 08/14/2024 Lack of Transportation (Non-Medical) No 08/14/2024 Patient Unable or Declines to Respond No 08/14/2024 OASIS B1300: Health Literacy Answer Lev e Recorded Frequency of needing help to read materials from doctor or pharmacy Always 08/14/2024 AUDIT-C Answer Date Recorded Q1: How often do you have a drink containing alc ohol? Monthly or less 02/21/2023 Q2: How many drinks containi ng alcohol do you have on a typical day when you are drinking? 1 or 2 02/21/2023 Q3: How often do you have si x or more drinks on one occasion? Never 02/21/2023 PHQ-2 Answer Date Recorded PHQ-2 Total Score (If total score is 3 or more points, staff should administer the PHQ-9) 0 07/11/2024 Personal Safety Answer Date Recorded Have you ever been in or are you currently in a harmful physical or emotional relationship or is someone making you feel afraid or unsafe? Denies 08/28/2024 Comments No Sex and Gender Information Value Date Recorded Sex Assigned at Not on file Legal Sex Female 5:18 PM LETTERPRESS PRINTING MACHINIST Gender Identity Not on file Sexual Orientation Not on file Last Filed Vital Signs Vital Sign Reading Time Taken Comments Blood Pressure 117/64 09/01/2024 11:01 AM LETTERPRESS PRINTING MACHINIST Pulse 60 09/01/2024 11:01 AM LETTERPRESS PRINTING MACHINIST Temperature 36.6 C (97.8 F) 09/01/2024 11:01 AM LETTERPRESS PRINTING MACHINIST Respiratory Rate 18 09/01/2024 11:01 AM LETTERPRESS PRINTING MACHINIST Oxygen Saturation 98% 09/01/2024 11:01 AM LETTERPRESS PRINTING MACHINIST Inhaled Oxygen Concentration - - Weight 92.3 kg (203 lb 7.8 oz) 09/01/2024 6:00 A M LETTERPRESS PRINTING MACHINIST Height 160 cm (5' 3) 08/28/2024 8:46 PM LETTERPRESS PRINTING MACHINIST Body Mass Index 36.05 08/28/2024 8:46 PM LETTERPRESS PRINTING MACHINIST Plan of Treatment Not on file Procedures Procedure Name Priority Date/Time Associated Diagnosis Comments SCREENING MAMMOGRAM BILATERAL W MALACHI Schedule Routine, Read Routine (OP Routine) 10/08/2021 9:47 AM CDT Encounter for screening mammogram for malignant neoplasm of breast from Last 3 Months or Most Recently Relevant to Health Maintenance Results * Screening Mammogram Bilateral W Malachi (10/08/2021 9:47 AM CDT) Anatomical Region Laterality Modality Breast Bilateral Mammography 10/10/2021 10:3 6 AM CDT Impressions 10/10/2021 10:36 AM CDT BI-RADS Category 1, negative. Recommendation Annual screening mammography. Electronically signed by: Alvina Mckeon M.D. Narrative 10/10/2021 10:36 AM CDT Examination: SCREENING MAMMOGRAM BILATERAL W MALACHI Order Date: 10/08/2021 10:15 AM History: Routine screening Comparison:07/22/2020, 08/08/2018, 01/11/2017 Technique Craniocaudal and mediolateral oblique views of both breasts were obtained utilizing full field 2 D and digital breast tomosynthesis [DBT] images were obtained. CAD was utilized. Breast parenchymal composition. There are scattered areas of fibroglandular density. Findings There is no suspicious dominant mass, clustered microcalcification or architectural distortion. There is no significant interval change from the prior study. This examination has been subjected to R2/CAD analysis. us Self Screening Mammogram IMG MAMMO PROCEDURES Fi nal Result from Last 3 Months or Most Recently Relevant to Health Maintenance Insurance MEDICARE MEDICARE [address] [place] [address] [facility] Advance Directives For more information, please contact: [phone] Documents on File Type Date Recorded Patient Die Try Out Worker Expl anation Power of Corporate Technical Recruiter 02/01/2024 2:11 PM ADVANCE DIRECTIVE 11/06/2023 9:09 AM DNR * Full Code (Latest Code Status on File) Date Activated Date Inactivated Comments 08/28/2024 1:05 PM 09/01/2024 7:14 PM Care Teams Commercial Collections Specialist Relationship Specialty Start Date End Date Sang Kwong MD [address] [place] [address] PCP - General Family Medicine 01/10/23 Keegan Christine MD [address] [place] [address] Consulting Physician Family Medicine 01/10/23 [place] [address] [place] [address] Consulting Physician Urology 01/29/23
--- OUTSIDE RECORDS SUMMARY | 2024-12-15 10:21 | XMS_ITS ---
Author Organization [facility] Care Team Providers Care Customer Operations Specialist Name Role Phone Sonia Barron Unavailable Unavailable Sarah Garza Unavailable Unavailable Allergies and adverse reactions Code CodeSystem Substance Reaction Severity StartDate Concern Status 957036413 SNOMED CT Sulfa Antibiotics Unknown 02/04/[address] Quinolones Unknown 02/04/[address] Penicillins Unknown 02/04/2022 activ e 2670 RXNORM Codeine Unknown 02/04/2022 active Care Team Name Role Address Phone Organization Dates Sonia Barron [place] [address] [place], [address], [place] (Office[place] : [facility] 02/04/2022 - 02/19/2022 Sarah Garza [address] [place], [address], [place] (Office): [facility] 02/04/2022 - 02/19/2022 Mental Status Section Date Assessment Total Score Description 02/19/2022 BIMS 11 moderate cognit jenny impairment CAM 0 No delirium ind icated PHQ-9 12 moderate depres mary ellen 02/09/2022 BIMS 10 moderate cognit jenny impairment CAM 0 No delirium ind icated PHQ-9 15 moderately sy re depression Problems Problem # Description Date of onset Resolved Date Code CodeSystem Concern Status 1 GENERALIZED ANXIETY DISORDER 02/18/[address] active 2 ESSENTIAL (PRIMARY) HYPERTENSION 02/16/[address] active 3 GASTRO-ESOPHAGEA L REFLUX DISEASE WITHOUT ESOPHAGITIS 02/05/[address] active 4 HYPERLIPIDEMIA, UNSPECIFIED 02/05/[address] active 5 MULTIPLE FRACTURES OF PELVIS WITH STABLE DISRUPTION OF PELVIC RING, INITIAL ENCOUNTER FOR CLOSED FRACTURE 02/05/20 22 02/08/[address] completed 6 RETENTION OF URINE, UNSPECIFIED 02/05/[address] active 7 SPINAL STENOSIS, SITE UNSPECIFIED 02/05/[address] active 8 COGNITIVE COMMUNICATION DEFICIT 02/04/[address] active 9 FRACTURE OF SUPERIOR RIM OF RIGHT PUBIS, SUBSEQUENT ENCOUNTER FOR FRACTURE WITH ROUTINE HEALING 02/04/[address] active 10 NEED FOR ASSISTANCE WITH PERSONAL CARE 02/04/[address] active 11 OTHER ABNORMALITIES OF GAIT AND MOBILITY 02/04/[address] active 12 OTHER SPECIFIED FRACTURE OF LEFT PUBIS, SUBSEQUENT ENCOUNTER FOR FRACTURE WITH ROUTINE HEALING 02/04/[address] active 13 UNSPECIFIED SYMPTOMS AND SIGNS INVOLVING COGNITIVE FUNCTIONS AND AWARENESS 02/04/[address] active Reason for Referral No Reasons for Referral Entered Social History Social History Observation Description Start Date End Date Code Code System Current Smoking Status Tobacco smoking consumption unknown 711965035 SNOMED CT Sex Assigned At Female 1945 99543-5 [facility] Gender Identity Vital Signs Code Code System Vitals Name Values and Units Timing Information 41258-5 [facility] Pain Level Value=0.0 02/19/2022 8310-5 [facility] Body Temperature Value=97.5 Units= F 02/19/2022 70284-6 [facility] O2 % BldC Oximetry Value=97.0 Units= % 02/19/2022 9279-1 [facility] Respiratory Rate Value=18.0 Units=/m in 02/15/2022 8462-4 [facility] Blood Pressure-Diastolic Value=99 Un its=mmHg 02/15/2022 8480-6 [facility] Blood Pressure-Systolic Npvyz=567 Un its=mmHg 02/15/2022 8867-4 [facility] Heart rate Value=88.0 Units=/min 75974-4 [facility] Weight Dzuht=442.0 Units=Lbs 8302-2 [facility] Height Value=65.0 Units=Inches 02/09/2022
--- OUTSIDE RECORDS SUMMARY | 2024-12-15 10:21 | XMS_ITS | Continuity of Care Document ---
Author Organization [facility] Address [address] [place] [address] Phone Care Team Providers Care Export Manager Name Role Phone Paul BAY, Michelle Unavailable Unavailabl e Allergies, Adverse Reactions, Alerts Substance Reaction Status Criticality Sulfa (Sulfonamide Antibiotics) Active No Information Penicillins Active No Information codeine Active No Information Medications Medication Instructions Dosage Effective Dates (start - stop) Status Comments ammonium lactate 12 % topical cream Apply a thin layer to effected area BID - Active Marianna 180 mg tablet take 1 tablet by oral route every day - Active ammonium lactate 12 % topical cream Apply a thin layer to effected area BID - No Longer Active Procedures Procedure Date OFFICE/OUTPATIENT VISIT EST OFFICE/OUTPATIENT VISIT EST OFFICE/OUTPATIENT VISIT EST PERCUT ALLERGY SKIN TESTS PERCUT ALLERGY SKIN TESTS OFFICE CONSULTATION Advance Directives Directive Yes / No Effective Date File Name No Information Encounters Encounter Description Practice Location Reason(s) For Visit Diagnoses Date Provider Providers Copied on Encounter OFFICE/OUTPAT IENT VISIT EST [facility] , [address], [place], [address], [place] tel:[phone] [facility] Follow Up of patch test reading (chief complaint) Rash 5 Paul Martinez. [address], [place], [place], [address]. tel:[phone] OFFICE/OUTPAT IENT VISIT EST [facility] , [address], [place], [address], [place] tel:[phone] [facility] evaluation for rash (chief complaint)a llergy evaluation (chief complaint) Rash 5 Paul Hamsa. [address], [place], [place], [address]. tel:[phone] OFFICE/OUTPAT IENT VISIT EST [facility] , [address], [place], [place], [facility], [place] tel:[phone] [facility] Follow Up of 3 Weeks (chief complaint) Dermatographi c urticariaRash 5 Paul Hamsa. [address], [place], [place], [address]. tel:[phone] [facility] , [address], [place], [place], [facility], tel:[phone] [facility] No Information 5 Paul Hamsa. [address], [place], [place], [address]. tel:[phone] OFFICE CONSULTATION [facility] , [address], [place], [facility], [place] tel:[phone] [facility] skin issues (chief complaint) RashAllergic rhinitisDerma tographic urticaria 5 Paul Hamsa. [address], [place], [place], [address]. tel:[phone] Family History Family Member Type Diagnosis Age At Onset Brother Problem (finding) asthma Payers Payer name Insurance type Covered green party ID Authoriza tion(s) Medicare E2 OT [id number] [place] [employer] Supplement F [id number] Social History Type Description Quantity Date Captured Comments Alcohol Use Details Unknown Caffeine Use Details Unknown Tobacco Use Status No Information Smoking Status No Information Sex Female Vital Signs Date / Time: Height Weight BMI Pulse Rate Blood Pressure Temperature Respiratory Rate Body Surface Area Head Circumference Head Circ. Percentile Wt./John. Percentile BMI percentile Pulse Ox Inhaled Ox 10:32 AM 65.00 in 57 /min 128/82 mm[Hg] 98.50 F 100 % Chief Complaint And Reason For Visit From encounter dated '03/20/2015 10:30'. Follow Up of patch test reading (chief complaint). Description: - no new out breaks- face is better- using amlactin daily- back itches, does not burn - patch test did not fall off Reason For Referral Reason For Referral No Information History Of Present Illness Encounter Date Complaint History Of Prese nt Illness Follow Up of patch test reading - no new out breaks- face is better - using amlactin daily- back itches, does not burn - patch test did not fall off evaluation for rash Ashanti zimmerman h ere for an evaluation for her rash , she has had the TRUE test placed and was told she was allergic to gold, since the rash persisted , she was asked to bring her personal products to be reviewed she was given Amlactin to use on the rash , since she was seen on the , her rash is better,no new spots , review of products:1. neutrogena SPF 70 - avobenzone is 3%, homosalalate is 15%, octisalate is 5%, octocrylene 2.8% and oxybenzone 6% -A2.cerave SPF-50, has niacinamide, titanium and zinc-B3.aveeno- mushroom extracts -C4.bright vit c spf 20- make up -no ingredients-D 5.cerave skin renewing creme-niaciamnie and xanthum gum6.adan age perfect and adan revitalift - -ensulizole 1.7%, octinoxate 7.5%- E- Ensulizole is water soluble, - phenylbenzimidazole sulfonic acid,rare cases of dermatitis have been noted , few side effects publisehed as it is new - sulfa meds causes hives in patient .7 eye cream- cerave8.retinpl correxion- night cream-alpha hydroxy , sun burn alert- F 9 dove sensitive soap 10.pink chiffon body cream- 11.hair products : biolage shampoo and kevcyirqqohq12/ perfume allergy evaluation Follow Up of 3 Weeks this is a 3 weeks appointment for a follow up of her the rash , the rash on her neck is better, the rash over her eyes come and goes - her eyes can get puffy and feel blistery - used to last a long time but that is better with Ammnium lactate which helps , protopic was called in but ws very expensive and so she did not get it, after one year she feels this treatment is helping nothing new had a sore thorat but that is better neck itches at times, her eyes do not itch she is taking non drowsy allergra -she gets a dry mouth , not dry eyes , uses artifical tears skin issues Referred by Dr. Golden, for the past 6 months she has had a rash , she has now switched to all hypo allergic products and that has not helped, she has tired marianna as needed, been on prednisones 2 times,and has tried some creams without much help , the rash developed late 2013 - she noticed , huge swollen red eyes-eye lids were puffy and swollen, no tearing but the skin was itching and she was rubbing it ,It started one morning when she woke up - she was in her own bedoccasionally after a bath her face would get redno hx of eczema, no food allergies seasonal allergy symptoms are better, she used to sneezeAt home she has pets - 3 cats and one dog, carpets in bed room are very old, no water leak but her basement may be damp She colors her hair q 2 months, no artifical nails, using lumene moriturizer which she started after she had this rash , before was adan , washes face with a face wash recommed by her customer service clerk son 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 Patch test will not be placed if there is sun burn, tanning lotion or exzema like skin on the back. Antihistamines can be continued as long as the patch test is in place; do not wet the area, if the patch falls off, do not re-apply the patch test.can continue amlactin, has an appointment for her 48 hour first read Related to Rash Skin care education provided. Re lated to Rash Instructions given in preparatio n for patch test. Related to Rash Assessments Type Assessment Date assessment Rash impression facial rash has comp letely cleared, patch test was placed by customer service clerk for the 36 standard TRUE test , i reviewed her personal products and placed 7 extra ones on her back , she is here for her first read:- all the squares where the active ingrediet was placed was negtaive - adhesive caused redness and scalling - Patient has Irritant dermatitis - see allergy scanned section for results - many have exfoliants and she was asked to avod multiple exfoliants- she uses facil creams with SPF that have 20 , 50 and 70 - this may be irritaiing her skin , she was asked to use one and reapply as time goes by - avoid multiple cosemtics - continue amlactin Patient Care Teams Name Effective Dates (start - stop) Status Members No Information
--- OUTSIDE RECORDS SUMMARY | 2024-12-15 10:21 | XMS_ITS | Encounter Summary ---
Author Organization [facility] Health Address [address] [place] [address] Care Team Providers Care Hot Dip Plater Name Role Phone Eugenio Jennings MD Primary Care Provider [phone] Eugenio Jennings MD Unavailable Caroline Vincent MD Unavailable [phone] Lamar Ward RN Unavailable [phone] Shi Conrad RN Unavailable [phone] Shi Conrad RN Unavailable [phone] Encounter Details Date Type Department Care Team (Late st Contact Info) Description 05/08/2012 [facility] Social History Tobacco Use Types Packs/Day Years Used Date Smoking Tobacco: Never Smokeless Tobacco: Never Alcohol Use Standard Drinks/Week Comments Yes 0 (1 standard drink = 0.6 oz pur e alcohol) occasionally Comments No Sex and Gender Information Value Date Recorded Sex Assigned at Not on file Legal Sex Female 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 INSURANCE ANALYST Gender Identity Not on file Sexual Orientation Not on file documented as of this encounter Plan of Treatment Not on file documented as of this encounter Visit Diagnoses Not on filedocumented in this encounter Care Teams Hot Dip Plater Relationship Specialty Start Date End Date Eugenio Jennings MD PCP - General Family Medicine 07/31/11 Eugenio Jennings MD [address] [facility] [address] [place] [address] PCP - Attributed-MSSP 09/20/18 10/08/20 Caroline Vincent MD [address] [phone] Ophthalmology 09/27/18 Lamar Ward RN Post Acute Brush OperatorGrommet Worker 01/18/22 Shi Conrad RN Post Acute Brush OperatorGrommet Worker 02/06/22 Shi Conrad RN Post Acute Brush OperatorGrommet Worker 02/06/22 documented as of this encounter
--- OUTSIDE RECORDS SUMMARY | 2024-12-15 10:21 | XMS_ITS | Encounter Summary ---
Author Organization [facility] Address [address] [place] [address] Care Team Providers Care Provider Scribe Name Role Phone Artemio Reveles DO Primary Care Provider Eugenio Jennings MD Primary Care Provider [phone] Eugenio Jennings MD Unavailable Caroline Vincent MD Unavailable [phone] Lamar Ward RN Unavailable [phone] Shi Conrad RN Unavailable [phone] Shi Conrad RN Unavailable [phone] Encounter Details Date Type Department Care Team (Late st Contact Info) Description 06/19/2011 [facility] Eugenio Jennings MD [address] [place] [address] Social History Tobacco Use Types Packs/Day Years Used Date Smoking Tobacco: Never Alcohol Use Standard Drinks/Week Comments Yes 0 (1 standard drink = 0.6 oz pur e alcohol) occasionally Comments No Sex and Gender Information Value Date Recorded Sex Assigned at Not on file Legal Sex Female 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 CONSULTANT Gender Identity Not on file Sexual Orientation Not on file documented as of this encounter Plan of Treatment Not on file documented as of this encounter Visit Diagnoses Not on filedocumented in this encounter Care Teams Provider Scribe Relationship Specialty [place] [address] [place] [address] PCP - General Family Medicine 10/10/10 07/30/11 [place] [address] [place] [address] PCP - General Family Medicine 07/31/11 Eugenio Jennings MD [address] [facility] [address] [place] [address] PCP - Attributed-MSSP 09/20/18 10/08/20 Caroline Vincent MD [address] [phone] Ophthalmology 09/27/18 Lamar Ward RN Post Acute Sanforizing Machine OperatorSpecial Agent Group Insurance 01/18/22 Shi Conrad RN Post Acute Sanforizing Machine OperatorSpecial Agent Group Insurance 02/06/22 Shi Conrad RN Post Acute Sanforizing Machine OperatorSpecial Agent Group Insurance 02/06/22 documented as of this encounter
--- OUTSIDE RECORDS SUMMARY | 2024-12-15 10:21 | XMS_ITS | Encounter Summary ---
Author Organization [facility] Health Address [address] [place] [address] Care Team Providers Care Sql Programmer Name Role Phone Eugenio Jennings MD Primary Care Provider [phone] Eugenio Jennings MD Unavailable Caroline Vincent MD Unavailable [phone] Lamar Ward RN Unavailable [phone] Shi Conrad RN Unavailable [phone] Shi Conrad RN Unavailable [phone] Encounter Details Date Type Department Care Team (Late st Contact Info) Description 05/29/2012 [facility] Social History Tobacco Use Types Packs/Day Years Used Date Smoking Tobacco: Never Smokeless Tobacco: Never Alcohol Use Standard Drinks/Week Comments Yes 0 (1 standard drink = 0.6 oz pur e alcohol) occasionally Comments No Sex and Gender Information Value Date Recorded Sex Assigned at Not on file Legal Sex Female 4:22 AM SECRET CODE EXPERT Gender Identity Not on file Sexual Orientation Not on file documented as of this encounter Plan of Treatment Not on file documented as of this encounter Visit Diagnoses Not on filedocumented in this encounter Care Teams Sql Programmer Relationship Specialty Start Date End Date Eugenio Jennings MD PCP - General Family Medicine 07/31/11 Eugenio Jennings MD [address] [facility] [address] [place] [address] PCP - Attributed-MSSP 09/20/18 10/08/20 Caroline Vincent MD [address] [phone] Ophthalmology 09/27/18 Lamar Ward RN Post Acute Machine Preservative FillerAutomotive Parts Person 01/18/22 Shi Conrad RN Post Acute Machine Preservative FillerAutomotive Parts Person 02/06/22 Shi Conrad RN Post Acute Machine Preservative FillerAutomotive Parts Person 02/06/22 documented as of this encounter
--- OUTSIDE RECORDS SUMMARY | 2024-12-15 10:21 | XMS_ITS | Encounter Summary ---
Author Organization [facility] Health Address [address] [place] [address] Care Team Providers Care Laminating Press Operator Name Role Phone Eugenio Jennings MD Primary Care Provider [phone] Eugenio Jennings MD Unavailable Caroline Vincent MD Unavailable [phone] Lamar Ward RN Unavailable [phone] Shi Conrad RN Unavailable [phone] Shi Conrad RN Unavailable [phone] Encounter Details Date Type Department Care Team (Late st Contact Info) Description 08/30/2011 [facility] Social History Tobacco Use Types Packs/Day Years Used Date Smoking Tobacco: Never Alcohol Use Standard Drinks/Week Comments Yes 0 (1 standard drink = 0.6 oz pur e alcohol) occasionally Comments No Sex and Gender Information Value Date Recorded Sex Assigned at Not on file Legal Sex Female 4:22 AM MARKETING OFFICER Gender Identity Not on file Sexual Orientation Not on file documented as of this encounter Plan of Treatment Not on file documented as of this encounter Visit Diagnoses Not on filedocumented in this encounter Care Teams Laminating Press Operator Relationship Specialty Start Date End Date Eugenio Jennings MD PCP - General Family Medicine 07/31/11 Eugenio Jennings MD [address] [facility] [address] [place] [address] PCP - Attributed-MSSP 09/20/18 10/08/20 Caroline Vincent MD [address] [phone] Ophthalmology 09/27/18 Lamar Ward RN Post Acute Scalp SpecialistPackaging Sales Consultant 01/18/22 Shi Conrad RN Post Acute Scalp SpecialistPackaging Sales Consultant 02/06/22 Shi Conrad RN Post Acute Scalp SpecialistPackaging Sales Consultant 02/06/22 documented as of this encounter
--- OUTSIDE RECORDS SUMMARY | 2024-12-15 10:21 | XMS_ITS ---
Author Organization [facility] Address [address] [facility] [address] [place], [place] [address] Care Team Providers Care Reduction Furnace Operator Name Role Phone Eugenio Jennings Primary Care Provider UnavailGaurav Lujan Unavailable [phone] Migration, Provider Unavailable Unavailable Allergies Allergen (clinical drug ingredient) Drug/Non Drug Allergy documented on EMR Reaction Allergy Type Onset Date Status codeine Codeine Unknown Drug Allergy Active Penicillin Unknown Drug Allergy Active REASON FOR VISIT Multum To Medispan Conversion Encounter Medications Medication SIG (Take, Route, Frequency, Duration) Notes Start Date End Date Status Evista *Please review a nd pick correct strength-formulation from Medispan options. If intended option is not shown, discontinue and re-order from Quick Search* Active NexIUM *Please review a nd pick correct strength-formulation from Medispan options. If intended option is not shown, discontinue and re-order from Quick Search* Active Nabumetone *Please review a nd pick correct strength-formulation from Medispan options. If intended option is not shown, discontinue and re-order from Quick Search* Active Encounters Encounter Location Date Provider Diagnosis [facility] [address] [facility] [address] [place], [place] [address] 07/05/2024 Provider Migration Plan Of Treatment No Information Progress Notes * Ashanti ANGEL ADOB:1945 (79 yo F)Acc No.[id number]:07/05/2024 Patient: Ashanti CHING Provider: Sayra betts Migration :1945 A ge:78 Y S ex:Female Date:07/05/2024 Address:[address], [place], [facility] Pcp:Eugenio Jennings Subjective: * Chief Complaints: * 1 . Multum To Medispan Conversion Encounter. * Medical History: * Medications: T aking NexIUM , Notes to Pharmacist: *Please review and pick correct strength-formulation from Medispan options. If intended option is not shown, discontinue and re-order from Quick Search*, Taking Nabumetone , Notes to Pharmacist: *Please review and pick correct strength-formulation from Medispan options. If intended option is not shown, discontinue and re-order from Quick Search*, Taking Evista , Notes to Pharmacist: *Please review and pick correct strength- formulation from Medispan options. If intended option is not shown, discontinue and re-order from Quick Search* * Allergies: C odeine, Penicillin. Objective: * Vitals: * Physical Examination: Assessment: Plan: * Treatment: * * Electronic signature of Zeina garcia Migration on 12/15/2024 at 10:21 AM CDT Sign off status: Pending * Provider: Sayra betts Migration Date: 09/05/2023 Generated for Salena chisholm/William/Jodysmitting on: 0 12/15/2024 10:21 AM CDT
--- OUTSIDE RECORDS SUMMARY | 2024-12-15 10:21 | XMS_ITS | Encounter Summary ---
Author Organization [facility] Address [address] [place] [address] Care Team Providers Care Cutting Machine Offbearer Name Role Phone Eugenio Jennings MD Primary Care Provider [phone] Caroline Vincent MD Unavailable [phone] Encounter Details Date Type Department Care Team (Latest Contact Info) Description 01/17/2022 4:07 PM CDT Hospital Encounter [address] [address] [place] [address] [place] [address] [facility] Social History Tobacco Use Types Packs/Day Years Used Date Smoking Tobacco: Never Smokeless Tobacco: Never Alcohol Use Standard Drinks/Week Comments Yes 2 (1 standard drink = 0.6 oz pur e alcohol) occasionally AUDIT-C Answer Date Recorded Q1: How often do you have a drink containing alc ohol? Monthly or less 01/11/2022 Q2: How many drinks containi ng alcohol do you have on a typical day when you are drinking? 1 or 2 01/11/2022 Q3: How often do you have si x or more drinks on one occasion? Monthly 01/11/2022 PHQ-2 Answer Date Recorded PHQ2 TOTAL SCORE 0 12/30/2020 Hunger Vital Sign Answer Date Recorded Within the past 12 months, y ou worried that your food would run out before you got the money to buy more. Never true 01/13/20 Within the past 12 months, t he food you bought just didn't last and you didn't have money to get more. Never true 01/12/2022 Comments No Sex and Gender Information Value Date Recorded Sex Assigned at Not on file Legal Sex Female 4:22 AM SENIOR JAVASCRIPT ENGINEER Gender Identity Not on file Sexual Orientation Not on file documented as of this encounter Functional Status * Is person deaf or have serious hearing difficulty? Answer Date of Assessment Author No 01/11/2022 7:10 PM Loree Welsh RN * Is person blind or have serious difficulty seeing? Answer Date of Assessment Author No 01/11/2022 7:10 PM Loree Welsh RN * Does person have serious difficulty walking/climbing stairs? Answer Date of Assessment Author No 01/11/2022 7:10 PM Loree Welsh RN * Does person have difficulty dressing/bathing? Answer Date of Assessment Author No 01/11/2022 7:10 PM Loree Welsh RN * Does person have difficulty doing errands alone? Answer Date of Assessment Author No 01/11/2022 7:10 PM Loree Welsh RN documented as of this encounter Mental Status * Does person have difficulty concentrating/remembering/making decisions? Answer Entry Date Author Yes 01/11/2022 7:10 PM Loree Welsh RN documented in this encounter Plan of Treatment Not on file documented as of this encounter Visit Diagnoses Not on filedocumented in this encounter Care Teams Cutting Machine Offbearer Relationship Specialty Start Date End Date Eugenio Jennings MD PCP - General Family Medicine 07/31/11 Caroline Vincent MD [address] [id number] Ophthalmology 09/27/18 documented as of this encounter
--- OUTSIDE RECORDS SUMMARY | 2024-12-15 10:21 | XMS_ITS | Patient Health Record ---
Author Organization [facility] Address [address] [facility] [address] [place], [place] [id number] Care Team Providers Care Flake Drier Name Role Phone Eugenio Jennings Primary Care Provider UnavailGaurav Lujan Unavailable [phone] Migration, Provider Unavailable Unavailable Allergies Allergen (clinical drug ingredient) Drug/Non Drug Allergy documented on EMR Reaction Allergy Type Onset Date Status codeine Codeine Unknown Drug Allergy Active Penicillin Unknown Drug Allergy Active Reason For Referral No Information Medications Medication SIG (Take, Route, Frequency, Duration) [...] discontinue and re-order from Quick Search* Active Problems Problem Type SNOMED Code ICD Code Onset Dates Problem Status W/U Status Risk Notes Problem Laryngeal spasm (390312522) Laryngeal spasm (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) Active confirmed laryngopharynge al reflux Problem Globus sensation (160244486) Globus sensation (306.4) Active confirmed Encounters Encounter Location Date Provider Diagnosis [facility] [address] [facility] [address] [place], [place] [id number] 07/05/2024 Provider Migration Plan Of Treatment No Information Insurance Providers Payer Name Payer Address Payer Phone Subscriber Number Group Number Insured Name Patient Relationship to Insured Coverage Start Date Coverage End Date [place] [address] [address] [place] [address] [id number] Ashanti Angel Self - patient is the insured [place] [address] [address] [phone] [id number] Ashanti Angel Self - patient is the insured Medical (General) History Medical History History ICD Code Pertinent Medical History: E ye problems, Ear problems, Nose problems, Throat/Neck problem Surgical History Surgery Date(Month/Year) gallbladder tonsillectomy Hospitalization History Reason Date(Month/Year) gallbladder
--- OUTSIDE RECORDS SUMMARY | 2024-12-15 10:21 | XMS_ITS | Clinical Summary ---
Author Organization [facility] Address [address] [place] [id number] Care Team Providers Care Parlor Maid Name Role Phone Sang Kwong MD Primary Care Provider [phone] Keegan Christine MD Unavailable [phone] Weston Muniz MD Unavailable [phone] Allergies Active Allergy Reactions Criticality Noted Date [...] 07/11/2024 Assessment & Plan (07/11/2024 12:28 PM ENGINEER STATION MAINLINE): No cough on exam, lungs are clear. Patient's brother reports infrequent throat clearing and cough. No changes in behavior/activity, normal appetite. No fevers. Patient denies feeling unwell or having any shortness of breath however technically difficult to get information from her with dementia status. Will check chest x- ray and repeat lab work. Pedal edema 06/10/2024 Assessment & Plan (07/11/2024 12:34 PM ENGINEER STATION MAINLINE): No significant swelling noted on exam, trace [...] symptoms. Assessment & Plan (06/10/2024 2:47 PM ENGINEER STATION MAINLINE): Discussed options including labs, chest x-ray, echo, [...] 11/13/2022 Assessment & Plan (07/11/2024 12:29 PM ENGINEER STATION MAINLINE): No falls or safety concerns. No acute changes in mood or aggression. Assessment & Plan (06/10/2024 2:46 PM ENGINEER STATION MAINLINE): Worsening. She is in a safe place. Has supportive family. Assessment & Plan (02/08/2024 1:51 PM CDT): Residing at [facility] with brother. No safety concerns or agitation. Assessment & Plan (11/14/2022 12:45 PM CDT): SLUMS completed, see scanned media. Patient residing at [facility], no safety concerns. She is not driving. [...] scope Assessment & Plan (07/29/2022 11:52 AM ENGINEER STATION MAINLINE): A(n) yearly Medicare Annual Wellness Visit has been performed today. Ashanti Angel is not up to date on screening tests. She is in need of DEXA and hepatitis c screening. She is not up to date on needed preventative vaccinations; She is in need of Covid-19 (booster). Driving is likely not safe at this point, without formal driver courier's test Recommended looking again into assisted living, it might be a safer arrangement Awaiting labs Generalized anxiety disorder 02/17/2022 Assessment & Plan (11/14/2022 12:53 PM CDT): No changes in medication management, continue citalopram. Denies any depressive symptoms. Will continue to monitor. Hypertension, essential 02/15/2022 Assessment & Plan (07/11/2024 12:28 PM ENGINEER STATION MAINLINE): Blood pressure is well controlled, no changes made today. Assessment & Plan (06/10/2024 2:45 PM ENGINEER STATION MAINLINE): Stable. Continue spironolactone. Short increased burst of [...] Overview (01/11/2022): 06/05/2017 CT Abdomen & Pelvis [facility] Mild Atherosclerosis of the aorta Assessment & [...] 02/08/2024 Assessment & Plan (09/04/2022 1:51 PM ENGINEER STATION MAINLINE): I have reviewed the hospital record, medications, [...] Labs as ordered Mild dementia 01/17/2022 02/08/2024 Encounters Date Type Department Care Team Description 09/17/2024 Orders Only [address] [address] Provider, MD Viktoriya from Last 3 Months Immunizations Immunization Administration Dates Next Due Flucelvax [...] Pneumococcal Conjugate Pcv20 07/26/2022 Pneumococcal, Unspecified 07/26/2022 Medical History Medical History Date Comments Spinal stenosis Fracture of left pubis (HCC) Fracture of right pubis (HCC) Hyperlipidemia Urine retention GERD (gastroesophageal reflux disease) Anxiety Hypertension Gait abnormality Mobility impaired Cognitive and behavioral changes Atherosclerosis of aorta Vitamin D deficiency Dysphagia Anemia Osteopenia Mild dementia (HCC) Family History Medical History Relation Name Comments Emphysema Brother Heart attack Father Alzheimer's disease Mother Sudden Cardiac Son BRCA 1 Neg Hx BRCA 2 Neg Hx Breast cancer Neg Hx Ovarian cancer Neg Hx Thyroid cancer Neg Hx Relation Name Status Comments Brother Alive Father Mother Son Social History Tobacco Use Types Packs/Day Years [...] on file Legal Sex Female 5:18 PM ENGINEER STATION MAINLINE Gender Identity Not on file Sexual Orientation Not on file Obstetrics History Para Term AB IAB SAB Ectopic Multiple Livin g Live Births 2 2 2 Date Outcome GA Total Labor Labor/2nd/3rd Weight Sex Type Anes PTL Na A1 A5 Name Clin Term Term Last Filed Vital Signs Vital Sign Reading Time Taken Comments Blood Pressure 117/64 09/01/2024 11:01 AM ENGINEER STATION MAINLINE Pulse 60 09/01/2024 11:01 AM ENGINEER STATION MAINLINE Temperature 36.6 C (97.8 F) 09/01/2024 11:01 AM ENGINEER STATION MAINLINE Respiratory Rate 18 09/01/2024 11:01 AM ENGINEER STATION MAINLINE Oxygen Saturation 98% 09/01/2024 11:01 AM ENGINEER STATION MAINLINE Inhaled Oxygen Concentration - - Weight 92.3 kg (203 lb 7.8 oz) 09/01/2024 6:00 A M ENGINEER STATION MAINLINE Height 160 cm (5' 3) 08/28/2024 8:46 PM ENGINEER STATION MAINLINE Body Mass Index 36.05 08/28/2024 8:46 PM ENGINEER STATION MAINLINE Plan of Treatment Health Maintenance Due Date Last Done Comments Hepatitis C Screening 1945 DTaP/Tdap/Td Vaccine (1 - Tdap) 1956 Hepatitis B Screening 10/27/1963 Zoster Vaccine (1 of 2) 10/27/1995 Covid-19 Vaccine ( season) 2024 05/09/2024, 05/10/2023, 12/12/2022, Additional history exists Well Visit 65+ 02/07/2025 02/08/2024, 05/23, 07/26/2022 Depression Screening 07/11/2025 07/11/2024, 02/08/2024, 10/25/2023, Additional history exists Fall Risk Assessment 09/01/2025 09/01/2024, 07/11/2024, 06/10/2024, Additional history exists Breast Cancer Screening-Mammogram Discontinued 10/08/2021, 07/22/2020, 08/08/2018, Additional history exists Pneumococcal vaccine 65+ Completed 07/26/2022, 10/2022 Influenza Vaccine Completed 05/09/2024, , 05/07/2023, Additional history exists Osteoporosis Screening-Bone Density Scan Discontinued Procedures Procedure Name Priority Date/Time Associated Diagnosis [...] Recently Relevant to Health Maintenance Insurance MEDICARE . [address] [place] [address] MEDICARE COMMERCIAL GENERIC MEDICARE [facility] Advance Directives For more information, please contact: [phone] Documents on File Type Date Recorded Patient Bay Stocker Expl anation Power of Fish Butcher 02/01/2024 2:11 PM ADVANCE DIRECTIVE 11/06/2023 9:09 AM DNR * Full Code (Latest Code Status on File) Date Activated Date Inactivated Comments 08/28/2024 1:05 PM 09/01/2024 7:14 PM Care Teams Parlor Maid Relationship Specialty Start Date End Date Sang Kwong MD [address] [place] [address] PCP - General Family Medicine 01/10/23 Keegan Christine MD [address] [facility] [address] [place] [address] Consulting Physician Family Medicine 01/10/23 [place] [address] [place] [address] Consulting Physician Urology 01/29/23
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
--- OUTSIDE RECORDS SUMMARY | 2024-12-15 10:21 | XMS_ITS | Data Portability ---
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 disorder 53528740 F41.1 Citalopram is not enough for anxiety. Given the current living arrangemen ts ASL is not appropriat e. Medication dose changed [id number] 18438 Z51.81 Health Concerns Section Related Observation LastModified by Organization Detai ls LastModified Time None Recorded Concern Status LastModified by Organization Details LastModified Time None Recorded Advance Directives Directive Y: Payers Encounter Date Sequence Insurance Name Policy Number Policy Cochran Covered Member ID Cochran Member ID Guarantor Name 08/29/2022 1 MEDICARE-IN (MEDICARE) Ashanti A Jeanne [id number] 2 Ashanti Jeanne Notes Date Note Type Note Provider Name and Address Organization Details Recorded Time 08/29/2022 text/html DementiaReported truong.Quality:short term memory loss; inability to learn or remember new information; forgetting names or everyday words; disoriented time, self, or place Severity:moderate Context:difficulty planning or organizing Associated Symptoms:no depression; no paranoia; no irritability or agitation; no weight loss; no incontinence; recent falls; alcohol use;anxiety;wandering HTN - Compliant with medications. Does not report any NAVAS, blurry vision, dizziness, CP, SOB, or palpitations.YASIR - taking medication but still very anxious. Facility staff reports difficulties with getting Ashanti to calm down. She was anxious at this visit. Domitila Camargo, [employer]-BC, PMHNP-BC [address] [place], [address], [facility] 08/29/2022 21:17:44 OBGyn Episode No OBEpisode recorded.
[2024-12-15 11:35] VITALS: BP 119/57; PULSE 66; RESP 12; O2SAT 96
== END 2024-12-15 11:48 ==
PROVIDERS: Emergency Provider Emergency Medicine; PCP Family Medicine
DX: S09.90XA Unspecified injury of head, initial encounter (principal); W18.2XXA Fall in (into) shower or empty bathtub, initial encounter
CPT/HCPCS: 70450; 72125; 99284